=== PATIENT | female | born 1950 | race Two or more races ===

== ENCOUNTER → 2017-07-13 | Outpatient (CLI) | payer MEDICARE ==
[~2017-07-13] VITALS: Ht 165.1 cm; Wt 90.0 kg
[~2017-07-13] MED LIST: AMLO-511 PO; ATEN50TA PO; CHOL50004 PO; CYAN250014 PO; HYDR25TA PO; LOSA50TA37 PO; METF500T4 PO; MULT-1203 PO; SIMV-259 PO
[2017-07-13 10:12] VITALS: BP 177/79
== END | disposition home or self-care (01) ==
LOC: EDBD 09:48 → HBOWC 09:48
PROVIDERS: ATTEND Nurse Practitioner Adult Health
DX: E11.622 Type 2 diabetes mellitus with other skin ulcer (principal); L97.311 Non-pressure chronic ulcer of right ankle limited to breakdown of skin; I87.2 Venous insufficiency (chronic) (peripheral); I10 Essential (primary) hypertension

== ENCOUNTER → 2017-07-19 | Outpatient (CLI) | payer MEDICARE ==
[~2017-07-19] MED LIST changes: +LIDOCAINE HCL 2% 5 ML JELLY TP ONE
[2017-07-19 11:18] VITALS: BP 154/87
== END | disposition home or self-care (01) ==
LOC: EDBD → HBOWC 09:47
PROVIDERS: ATTEND Nurse Practitioner Adult Health
DX: E11.622 Type 2 diabetes mellitus with other skin ulcer (principal); L97.311 Non-pressure chronic ulcer of right ankle limited to breakdown of skin; I87.2 Venous insufficiency (chronic) (peripheral); I10 Essential (primary) hypertension

== ENCOUNTER → 2017-07-26 | Outpatient (CLI) | payer MEDICARE ==
[~2017-07-26] MED LIST changes: -LIDOCAINE HCL 2% 5 ML JELLY TP ONE
[2017-07-26 09:00] VITALS: BP 169/80
== END | disposition home or self-care (01) ==
LOC: HBOWC 08:58
PROVIDERS: ATTEND Nurse Practitioner Adult Health
DX: I87.2 Venous insufficiency (chronic) (peripheral) (principal); E11.622 Type 2 diabetes mellitus with other skin ulcer; L97.311 Non-pressure chronic ulcer of right ankle limited to breakdown of skin; I10 Essential (primary) hypertension

== ENCOUNTER → 2017-08-02 | Outpatient (CLI) | payer MEDICARE ==
[2017-08-02 10:40] VITALS: BP 149/83
== END | disposition home or self-care (01) ==
LOC: HBOWC 10:22
PROVIDERS: ATTEND Nurse Practitioner Adult Health
DX: E11.622 Type 2 diabetes mellitus with other skin ulcer (principal); I87.2 Venous insufficiency (chronic) (peripheral); L97.311 Non-pressure chronic ulcer of right ankle limited to breakdown of skin; I10 Essential (primary) hypertension

== ENCOUNTER → 2018-05-23 | Outpatient (CLI) | payer MEDICARE ==
[~2018-05-23] VITALS: Ht 162.6 cm; Wt 93.0 kg
[~2018-05-23] MED LIST changes: +LOSA50TA25 PO; -LOSA50TA37 PO; +METF-960 PO; -METF500T4 PO
[2018-05-23 10:04] VITALS: BP 135/87
== END | disposition home or self-care (01) ==
LOC: HBOWC 09:44
PROVIDERS: ATTEND Nurse Practitioner Adult Health
DX: E11.622 Type 2 diabetes mellitus with other skin ulcer (principal); L97.311 Non-pressure chronic ulcer of right ankle limited to breakdown of skin; I87.2 Venous insufficiency (chronic) (peripheral); I10 Essential (primary) hypertension; E78.5 Hyperlipidemia, unspecified

== ENCOUNTER → 2018-05-30 | Outpatient (CLI) | payer MEDICARE ==
[~2018-05-30] MED LIST changes: +LIDOCAINE 4% 50 ML SOLUTION TP ONE
[2018-05-30 10:31] VITALS: BP 120/72
== END | disposition home or self-care (01) ==
LOC: HBOWC 10:11
PROVIDERS: ATTEND Nurse Practitioner Adult Health
DX: E11.622 Type 2 diabetes mellitus with other skin ulcer (principal); L97.311 Non-pressure chronic ulcer of right ankle limited to breakdown of skin; I87.2 Venous insufficiency (chronic) (peripheral); I10 Essential (primary) hypertension; E78.5 Hyperlipidemia, unspecified

== ENCOUNTER → 2018-06-06 | Outpatient (CLI) | payer MEDICARE ==
[~2018-06-06] MED LIST changes: -LIDOCAINE 4% 50 ML SOLUTION TP ONE
[2018-06-06 11:42] VITALS: BP 134/71
== END | disposition home or self-care (01) ==
LOC: HBOWC 10:15
PROVIDERS: ATTEND Nurse Practitioner Adult Health
DX: E11.622 Type 2 diabetes mellitus with other skin ulcer (principal); L97.311 Non-pressure chronic ulcer of right ankle limited to breakdown of skin; I87.2 Venous insufficiency (chronic) (peripheral); E78.5 Hyperlipidemia, unspecified; I10 Essential (primary) hypertension; E55.9 Vitamin D deficiency, unspecified

== ENCOUNTER → 2018-06-13 | Outpatient (CLI) | payer MEDICARE ==
[~2018-06-13] MED LIST changes: +LIDOCAINE 2% 5 ML JELLY TP ONE
[2018-06-13 11:11] VITALS: BP 126/75
== END | disposition home or self-care (01) ==
LOC: HBOWC 10:34
PROVIDERS: ATTEND Nurse Practitioner Adult Health
DX: E11.622 Type 2 diabetes mellitus with other skin ulcer (principal); L97.311 Non-pressure chronic ulcer of right ankle limited to breakdown of skin; I87.2 Venous insufficiency (chronic) (peripheral); E78.5 Hyperlipidemia, unspecified; I10 Essential (primary) hypertension; E55.9 Vitamin D deficiency, unspecified

== ENCOUNTER → 2018-06-20 | Outpatient (CLI) | payer MEDICARE ==
[~2018-06-20] MED LIST changes: -LIDOCAINE 2% 5 ML JELLY TP ONE
[2018-06-20 10:14] VITALS: BP 147/72
== END | disposition home or self-care (01) ==
LOC: HBOWC 09:52
PROVIDERS: ATTEND Nurse Practitioner Adult Health
DX: E11.622 Type 2 diabetes mellitus with other skin ulcer (principal); L97.311 Non-pressure chronic ulcer of right ankle limited to breakdown of skin; I87.2 Venous insufficiency (chronic) (peripheral); E78.5 Hyperlipidemia, unspecified; I10 Essential (primary) hypertension; E55.9 Vitamin D deficiency, unspecified

== ENCOUNTER → 2018-06-27 | Outpatient (CLI) | payer MEDICARE ==
[~2018-06-27] MED LIST changes: +LIDOCAINE 4% 50 ML SOLUTION TP ONE
[2018-06-27 10:10] VITALS: BP 151/85
== END | disposition home or self-care (01) ==
LOC: HBOWC 09:59
PROVIDERS: ATTEND Nurse Practitioner Adult Health
DX: E11.622 Type 2 diabetes mellitus with other skin ulcer (principal); L97.311 Non-pressure chronic ulcer of right ankle limited to breakdown of skin; I87.2 Venous insufficiency (chronic) (peripheral); L60.2 Onychogryphosis; E78.5 Hyperlipidemia, unspecified; I10 Essential (primary) hypertension; E55.9 Vitamin D deficiency, unspecified

== ENCOUNTER → 2018-07-11 | Outpatient (CLI) | payer MEDICARE ==
[~2018-07-11] MED LIST changes: -LIDOCAINE 4% 50 ML SOLUTION TP ONE
[2018-07-11 10:45] VITALS: BP 144/59
== END | disposition home or self-care (01) ==
LOC: HBOWC 10:03
PROVIDERS: ATTEND Nurse Practitioner Adult Health
DX: E11.622 Type 2 diabetes mellitus with other skin ulcer (principal); L97.311 Non-pressure chronic ulcer of right ankle limited to breakdown of skin; I87.2 Venous insufficiency (chronic) (peripheral); E78.5 Hyperlipidemia, unspecified; I10 Essential (primary) hypertension; E55.9 Vitamin D deficiency, unspecified; L90.9 Atrophic disorder of skin, unspecified

== ENCOUNTER → 2018-07-18 | Outpatient (CLI) | payer MEDICARE ==
[~2018-07-18] MED LIST changes: +BACTDSB PO; -LOSA50TA25 PO; +LOSA50TA64 PO
[2018-07-18 10:14] VITALS: BP 144/72
== END | disposition home or self-care (01) ==
LOC: HBOWC 09:57
PROVIDERS: ATTEND Nurse Practitioner Adult Health
DX: E11.622 Type 2 diabetes mellitus with other skin ulcer (principal); L97.311 Non-pressure chronic ulcer of right ankle limited to breakdown of skin; I87.2 Venous insufficiency (chronic) (peripheral); E78.5 Hyperlipidemia, unspecified; I10 Essential (primary) hypertension; E55.9 Vitamin D deficiency, unspecified; L90.9 Atrophic disorder of skin, unspecified; B35.1 Tinea unguium

== ENCOUNTER → 2018-07-25 | Outpatient (CLI) | payer MEDICARE ==
[2018-07-25 10:05] VITALS: BP 133/75
== END | disposition home or self-care (01) ==
LOC: MSR 10:00
PROVIDERS: ATTEND Nurse Practitioner Adult Health
DX: L97.813 Non-pressure chronic ulcer of other part of right lower leg with necrosis of muscle (principal); I87.2 Venous insufficiency (chronic) (peripheral)

== ENCOUNTER → 2018-08-01 | Outpatient (CLI) | payer MEDICARE ==
[2018-08-01 10:00] VITALS: BP 126/78
== END | disposition home or self-care (01) ==
LOC: HBOWC 10:11
PROVIDERS: ATTEND Nurse Practitioner Adult Health
DX: E11.622 Type 2 diabetes mellitus with other skin ulcer (principal); L97.311 Non-pressure chronic ulcer of right ankle limited to breakdown of skin; I87.2 Venous insufficiency (chronic) (peripheral); E78.5 Hyperlipidemia, unspecified; I10 Essential (primary) hypertension; E55.9 Vitamin D deficiency, unspecified; L90.9 Atrophic disorder of skin, unspecified; L60.2 Onychogryphosis

== ENCOUNTER → 2018-08-15 | Outpatient (CLI) | payer MEDICARE ==
[2018-08-15 10:13] VITALS: BP 123/86
== END | disposition home or self-care (01) ==
LOC: HBOWC 09:54
PROVIDERS: ATTEND Nurse Practitioner Adult Health
DX: E11.622 Type 2 diabetes mellitus with other skin ulcer (principal); L97.311 Non-pressure chronic ulcer of right ankle limited to breakdown of skin; I87.2 Venous insufficiency (chronic) (peripheral); L90.9 Atrophic disorder of skin, unspecified; E78.5 Hyperlipidemia, unspecified; I10 Essential (primary) hypertension; L60.2 Onychogryphosis; E55.9 Vitamin D deficiency, unspecified
CPT/HCPCS: 87070; G0463

== ENCOUNTER → 2018-08-22 | Outpatient (CLI) | payer MEDICARE ==
[2018-08-22 10:10] VITALS: BP 146/91
== END | disposition home or self-care (01) ==
LOC: HBOWC 10:01
PROVIDERS: ATTEND Nurse Practitioner Adult Health
DX: E11.622 Type 2 diabetes mellitus with other skin ulcer (principal); L97.311 Non-pressure chronic ulcer of right ankle limited to breakdown of skin; I87.2 Venous insufficiency (chronic) (peripheral); L60.2 Onychogryphosis; L90.9 Atrophic disorder of skin, unspecified; E78.5 Hyperlipidemia, unspecified; I10 Essential (primary) hypertension; E55.9 Vitamin D deficiency, unspecified; Z79.84 Long term (current) use of oral hypoglycemic drugs

== ENCOUNTER → 2018-08-29 | Outpatient (CLI) | payer MEDICARE ==
[~2018-08-29] MED LIST changes: +LIDOCAINE 2% 5 ML JELLY TP ONE
[2018-08-29 11:07] VITALS: BP 142/74
== END | disposition home or self-care (01) ==
LOC: HBOWC 10:05
PROVIDERS: ATTEND Nurse Practitioner Adult Health
DX: E11.622 Type 2 diabetes mellitus with other skin ulcer (principal); L97.311 Non-pressure chronic ulcer of right ankle limited to breakdown of skin; I87.2 Venous insufficiency (chronic) (peripheral); E78.5 Hyperlipidemia, unspecified; I10 Essential (primary) hypertension; E55.9 Vitamin D deficiency, unspecified; L90.9 Atrophic disorder of skin, unspecified; L60.2 Onychogryphosis; Z79.84 Long term (current) use of oral hypoglycemic drugs

== ENCOUNTER → 2018-09-05 | Outpatient (CLI) | payer MEDICARE ==
[~2018-09-05] MED LIST changes: -LIDOCAINE 2% 5 ML JELLY TP ONE
[2018-09-05 10:15] VITALS: BP 138/77
== END | disposition home or self-care (01) ==
LOC: HBOWC 09:58
PROVIDERS: ATTEND Nurse Practitioner Adult Health
DX: E11.622 Type 2 diabetes mellitus with other skin ulcer (principal); L97.311 Non-pressure chronic ulcer of right ankle limited to breakdown of skin; I87.2 Venous insufficiency (chronic) (peripheral); L90.9 Atrophic disorder of skin, unspecified; L60.2 Onychogryphosis; E78.5 Hyperlipidemia, unspecified; I10 Essential (primary) hypertension; E55.9 Vitamin D deficiency, unspecified; Z79.84 Long term (current) use of oral hypoglycemic drugs

== ENCOUNTER → 2018-09-12 | Outpatient (CLI) | payer MEDICARE ==
[2018-09-12 10:35] VITALS: BP 156/78
== END | disposition home or self-care (01) ==
LOC: HBOWC 10:08
PROVIDERS: ATTEND Nurse Practitioner Adult Health
DX: E11.622 Type 2 diabetes mellitus with other skin ulcer (principal); L97.318 Non-pressure chronic ulcer of right ankle with other specified severity; I87.2 Venous insufficiency (chronic) (peripheral); E78.5 Hyperlipidemia, unspecified; I10 Essential (primary) hypertension; E55.9 Vitamin D deficiency, unspecified; L90.9 Atrophic disorder of skin, unspecified; L60.2 Onychogryphosis; Z79.84 Long term (current) use of oral hypoglycemic drugs

== ENCOUNTER → 2020-01-29 | Outpatient (CLI) | payer MEDICARE ==
[~2020-01-29] MED LIST changes: -AMLO-511 PO; +AMLO5TAB9 PO; +ATEN-72 PO; -ATEN50TA PO; +HYDR-1475 PO; -HYDR25TA PO; +LOSA50TA37 PO; -LOSA50TA64 PO
== END | disposition home or self-care (01) ==
LOC: HBOWC 10:50
PROVIDERS: ATTEND Nurse Practitioner Adult Health
DX: E11.622 Type 2 diabetes mellitus with other skin ulcer (principal); L97.311 Non-pressure chronic ulcer of right ankle limited to breakdown of skin; I87.2 Venous insufficiency (chronic) (peripheral); E78.5 Hyperlipidemia, unspecified; I10 Essential (primary) hypertension; E55.9 Vitamin D deficiency, unspecified; L90.9 Atrophic disorder of skin, unspecified; L60.2 Onychogryphosis; E11.51 Type 2 diabetes mellitus with diabetic peripheral angiopathy without gangrene; E11.40 Type 2 diabetes mellitus with diabetic neuropathy, unspecified; B35.1 Tinea unguium; Z79.82 Long term (current) use of aspirin; Z79.84 Long term (current) use of oral hypoglycemic drugs

== ENCOUNTER → 2020-02-12 | Outpatient (CLI) | payer MEDICARE | END | disposition home or self-care (01) | LOC: HBOWC 10:55 | PROVIDERS: ATTEND Nurse Practitioner Adult Health | DX: E11.622 Type 2 diabetes mellitus with other skin ulcer (principal); L97.311 Non-pressure chronic ulcer of right ankle limited to breakdown of skin; I87.2 Venous insufficiency (chronic) (peripheral); E78.5 Hyperlipidemia, unspecified; I10 Essential (primary) hypertension; E55.9 Vitamin D deficiency, unspecified; L90.9 Atrophic disorder of skin, unspecified; L60.2 Onychogryphosis; E11.51 Type 2 diabetes mellitus with diabetic peripheral angiopathy without gangrene; E11.40 Type 2 diabetes mellitus with diabetic neuropathy, unspecified; B35.1 Tinea unguium; Z79.82 Long term (current) use of aspirin; Z79.84 Long term (current) use of oral hypoglycemic drugs ==

== ENCOUNTER → 2020-08-31 | Outpatient (CLI) | payer MEDICARE ==
[~2020-08-31] MED LIST changes: +AMLO-257 PO; -AMLO5TAB9 PO; +LIDOCAINE 4% 50 ML SOLUTION TP ONE
== END | disposition home or self-care (01) ==
LOC: HBOWC 11:00
PROVIDERS: ATTEND Emergency Medicine
DX: E11.622 Type 2 diabetes mellitus with other skin ulcer (principal); L97.811 Non-pressure chronic ulcer of other part of right lower leg limited to breakdown of skin; I10 Essential (primary) hypertension; E78.5 Hyperlipidemia, unspecified; B35.1 Tinea unguium; E11.40 Type 2 diabetes mellitus with diabetic neuropathy, unspecified; E11.51 Type 2 diabetes mellitus with diabetic peripheral angiopathy without gangrene; L60.2 Onychogryphosis; I89.0 Lymphedema, not elsewhere classified; I87.2 Venous insufficiency (chronic) (peripheral); Z79.82 Long term (current) use of aspirin; Z79.84 Long term (current) use of oral hypoglycemic drugs
CPT/HCPCS: 29581

== ENCOUNTER → 2020-09-30 | Outpatient (CLI) | payer MEDICARE ==
[~2020-09-30] MED LIST changes: -HYDR-1475 PO; +HYDR25TA2 PO; -LIDOCAINE 4% 50 ML SOLUTION TP ONE; +NYSTATIN 15 GM CREAM [WOUND CENTER ONLY] TP ONE
== END | disposition home or self-care (01) ==
LOC: HBOWC 12:40
PROVIDERS: ATTEND Nurse Practitioner Adult Health
DX: E11.622 Type 2 diabetes mellitus with other skin ulcer (principal); L97.811 Non-pressure chronic ulcer of other part of right lower leg limited to breakdown of skin; I10 Essential (primary) hypertension; E78.5 Hyperlipidemia, unspecified; B35.1 Tinea unguium; E11.40 Type 2 diabetes mellitus with diabetic neuropathy, unspecified; E11.51 Type 2 diabetes mellitus with diabetic peripheral angiopathy without gangrene; L60.2 Onychogryphosis; I89.0 Lymphedema, not elsewhere classified; I87.2 Venous insufficiency (chronic) (peripheral); Z79.82 Long term (current) use of aspirin; Z79.84 Long term (current) use of oral hypoglycemic drugs

== ENCOUNTER → 2020-10-07 | Outpatient (CLI) | payer MEDICARE ==
[~2020-10-07] MED LIST changes: -NYSTATIN 15 GM CREAM [WOUND CENTER ONLY] TP ONE
== END | disposition home or self-care (01) ==
LOC: HBOWC 09:12
PROVIDERS: ATTEND Nurse Practitioner Adult Health
DX: E11.622 Type 2 diabetes mellitus with other skin ulcer (principal); L97.811 Non-pressure chronic ulcer of other part of right lower leg limited to breakdown of skin; I10 Essential (primary) hypertension; E78.5 Hyperlipidemia, unspecified; B35.1 Tinea unguium; E11.40 Type 2 diabetes mellitus with diabetic neuropathy, unspecified; E11.51 Type 2 diabetes mellitus with diabetic peripheral angiopathy without gangrene; L60.2 Onychogryphosis; I89.0 Lymphedema, not elsewhere classified; I87.2 Venous insufficiency (chronic) (peripheral); Z79.82 Long term (current) use of aspirin; Z79.84 Long term (current) use of oral hypoglycemic drugs
CPT/HCPCS: G0463; Z7500

== ENCOUNTER → 2020-10-14 | Outpatient (CLI) | payer MEDICARE ==
[~2020-10-14] MED LIST changes: +NYSTATIN 30 GM OINTMENT TP ONE
== END | disposition home or self-care (01) ==
LOC: HBOWC 09:37
PROVIDERS: ATTEND Nurse Practitioner Adult Health
DX: E11.622 Type 2 diabetes mellitus with other skin ulcer (principal); L97.811 Non-pressure chronic ulcer of other part of right lower leg limited to breakdown of skin; I10 Essential (primary) hypertension; E78.5 Hyperlipidemia, unspecified; B35.1 Tinea unguium; E11.40 Type 2 diabetes mellitus with diabetic neuropathy, unspecified; E11.51 Type 2 diabetes mellitus with diabetic peripheral angiopathy without gangrene; L60.2 Onychogryphosis; I89.0 Lymphedema, not elsewhere classified; I87.2 Venous insufficiency (chronic) (peripheral); Z79.82 Long term (current) use of aspirin; Z79.84 Long term (current) use of oral hypoglycemic drugs

== ENCOUNTER → 2020-10-21 | Outpatient (CLI) | payer MEDICARE ==
[~2020-10-21] MED LIST changes: -NYSTATIN 30 GM OINTMENT TP ONE
== END | disposition home or self-care (01) ==
LOC: HBOWC 10:04
PROVIDERS: ATTEND Nurse Practitioner Adult Health
DX: E11.622 Type 2 diabetes mellitus with other skin ulcer (principal); L97.311 Non-pressure chronic ulcer of right ankle limited to breakdown of skin; L97.811 Non-pressure chronic ulcer of other part of right lower leg limited to breakdown of skin; I10 Essential (primary) hypertension; E78.5 Hyperlipidemia, unspecified; B35.1 Tinea unguium; E11.40 Type 2 diabetes mellitus with diabetic neuropathy, unspecified; E11.51 Type 2 diabetes mellitus with diabetic peripheral angiopathy without gangrene; L60.2 Onychogryphosis; I89.0 Lymphedema, not elsewhere classified; I87.2 Venous insufficiency (chronic) (peripheral); Z79.82 Long term (current) use of aspirin; Z79.84 Long term (current) use of oral hypoglycemic drugs

== ENCOUNTER → 2020-11-04 | Outpatient (CLI) | payer MEDICARE | END | disposition home or self-care (01) | LOC: HBOWC 10:02 | PROVIDERS: ATTEND Nurse Practitioner Adult Health | DX: E11.622 Type 2 diabetes mellitus with other skin ulcer (principal); L97.818 Non-pressure chronic ulcer of other part of right lower leg with other specified severity; I87.2 Venous insufficiency (chronic) (peripheral); E11.51 Type 2 diabetes mellitus with diabetic peripheral angiopathy without gangrene; E11.40 Type 2 diabetes mellitus with diabetic neuropathy, unspecified; I89.0 Lymphedema, not elsewhere classified; I10 Essential (primary) hypertension; M51.36 Other intervertebral disc degeneration, lumbar region; M19.071 Primary osteoarthritis, right ankle and foot; Z79.84 Long term (current) use of oral hypoglycemic drugs; Z79.82 Long term (current) use of aspirin; Z79.899 Other long term (current) drug therapy | CPT/HCPCS: 99215; G0463; Z7500 ==